=== PATIENT | female | born 1960 | race Caucasian/White ===

== ENCOUNTER 2017-04-16 08:12 | Outpatient (CLI) | payer BC ==
--- NOTE | 2017-04-16 09:56 | MRI ---
CERVICAL SPINE MRI WITHOUT CONTRAST: Date: 04-16-17 Comparison: None. History: Cervical radiculopathy at C6. Technique: Multiplanar, multisequence MR imaging of the cervical spine is provided without contrast. FINDINGS: The sagittal STIR imaging demonstrates no focal area of osseous marrow edema. Cervical vertebral body height and alignment is within normal limits. No prevertebral soft tissue abn ormality is noted. C2-3: There is mild right sided facet hypertrophy. Intervertebral disc height and signal intensity is within normal limits no significant central canal or neural foraminal stenosis. C3-4: Right sided facet hypertrophy. Minimal right neural foraminal stenosis. No central canal or lef t neural foraminal stenosis. Intervertebral disc height and signal intensity is within normal limits. C4-5: There is mild right sided facet hypertrophy with associated mild right neural foraminal stenosi s. No significant central canal or left neural foraminal stenosis. C5-6: There is mild disc space narrowing and disc bulge with no central canal stenosis. There is mild right neural foraminal stenosis on the basis of facet and uncal vertebral osteophyte formation. No l eft neural foraminal stenosis. C6-7: Intervertebral disc height and signal intensity is within normal limits with no significant carl tral canal or neural foraminal stenosis. C7-T1: Mild left facet hypertrophy. Minimal left neural foraminal stenosis. No central canal or right neural foraminal stenosis. No focal area of signal abnormality identified within the cervical cord. IMPRESSION: Relatively mild cervical spine degenerative change as detailed above. POS: [facility]
== END 2017-04-16 08:13 | disposition home or self-care (01) ==
LOC: SCSMRI 08:12
PROVIDERS: ATTEND Anesthesiology Pain Medicine
DX: M47.22 Other spondylosis with radiculopathy, cervical region (principal)
CPT/HCPCS: 72141

== ENCOUNTER 2019-01-08 13:31 | Outpatient (CLI) | payer BC ==
--- NOTE | 2019-01-08 15:00 | BD ---
Exam: DEXA Bone Density 01/08/19 HISTORY: Postmenopausal. Lumbar Spine: BMD (g/cm2) T-SCORE L1 0.852 -1.3 L2 0.868 -1.5 L3 0.887 -1.8 L4 0.940 -1.1 L1-L4 0.890 -1.4 Left Femoral Neck: 0.713 -1.2 Total Femur: 0.906 -0.3 Impression: 1. Osteopenia in the lumbar spine left femoral neck. 2. Ten year fracture risk for major osteoporotic fracture is 13% and hip fracture 1.1%. These fr acture probabilities are calculated for an untreated patient. POS: OFF
== END 2019-01-08 13:32 | disposition home or self-care (01) ==
LOC: BICMAMMO 13:31
PROVIDERS: ATTEND Internal Medicine Rheumatology
DX: M81.0 Age-related osteoporosis without current pathological fracture (principal); M85.89 Other specified disorders of bone density and structure, multiple sites
CPT/HCPCS: 77080

== ENCOUNTER 2020-02-18 15:59 | Outpatient (CLI) | payer OTHER ==
--- NOTE | 2020-02-18 17:06 | MRI ---
MR of the right shoulder without contrast INDICATION: History of right shoulder pain COMPARISON: None FINDINGS: There is mild/moderate tendinosis of the supraspinatus and infraspinatus.. There is a small focal int ratendinous delaminating tear involving the posterior supraspinatus at the footprint measuring approximately 0.6 x 0.6 cm. No full-thickness tear is evident. There is [id number] fluid in the subcarinal subdeltoid space. The biceps tendon is located. Glenoid labrum appears intact. Glenohumeral articular surface is normal-appearing. There is mild AC joint osteoarthrosis. There is a type II acromion. No os acromiale is evident. No muscular atrophy is evident. The anterior inferior glenohumeral labral ligamentous complex appears intact. No bone marrow signal abnormality is evident. No enlarged lymph nodes are present. IMPRESSION: 1. Ppma-oy-[id number] tendinosis of the supraspinatus and infraspinatus with a small intrasubstance del aminating tear involving the posterior supraspinatus at the footprint. 2. Yeda-ig-[id number] fluid in the subacromial, subdeltoid bursa may reflect underlying bursitis. 3. Mild AC joint osteoarthrosis. Transcribed Date/Time: 02/18/2020 5:20 PM
== END 2020-02-18 16:00 | disposition home or self-care (01) ==
LOC: SCSMRI 15:59
PROVIDERS: ATTEND Orthopaedic Surgery
DX: M75.21 Bicipital tendinitis, right shoulder (principal); M19.011 Primary osteoarthritis, right shoulder; M25.411 Effusion, right shoulder; M67.813 Other specified disorders of tendon, right shoulder; M75.101 Unspecified rotator cuff tear or rupture of right shoulder, not specified as traumatic

== ENCOUNTER 2020-11-29 13:51 | Outpatient (CLI) | payer OTHER | END 2020-11-29 13:52 | disposition home or self-care (01) | LOC: SCSMRI 13:51 | PROVIDERS: ATTEND Orthopaedic Surgery | DX: S83.242A Other tear of medial meniscus, current injury, left knee, initial encounter (principal); M17.12 Unilateral primary osteoarthritis, left knee ==

== ENCOUNTER 2021-03-01 15:57 | Outpatient (CLI) | payer OTHER ==
[2021-03-01 16:50] LABS: #Basophils 0.1 10x3/uL (0.0-0.2); #Eosinphils 0.3 10x3/uL (0.0-0.5); #Monocytes 0.6 10x3/uL (0.0-1.1); #Neutrophils 3.2 10x3/uL (1.5-8.4); %Basophils 0.9 % (0.0-2.0); %Eosinophils 4.3 % (0.0-6.0); %Lymphocytes 30.6 % (18.0-47.0); %Monocytes 9.6 % (0.0-10.0); %Neutrophils 54.4 % (40.0-75.0); Hemoglobin 13.4 g/dL (12.0-15.5); Mean Corpuscular HGB CONC 33.3 g/dL (32.0-36.0); Mean Corpuscular Hemoglobin 32.1 pg (27.0-33.0); Mean Corpuscular Volume 96.4 fl (81.6-98.3); Mean Platelet Volume 8.6 fl (7.4-10.4); Platelet Count 318 10x3/uL (150-450); RBC Distribution Width 11.9 % (11.5-14.5); Red Blood Cell (RBC) Count 4.18 10x6/uL (3.90-5.03); White Blood Cell (WBC) Count 5.9 10x3/uL (3.5-10.5)
[2021-03-01 17:08] LABS: Anion Gap 12 mmol/L (10-20); BUN (Urea Nitrogen) 18 mg/dL (9.8-20.1); Calc. Creatinine Clearance 0 mL/min (70-130); Calcium 10.2 mg/dL (7.8-10.44); Carbon Dioxide 30 mmol/L (22-29); Chloride 99 mmol/L (98-107); Glucose 85 mg/dL (70-105); Potassium 3.3 mmol/L (3.5-5.1); Sodium 138 mmol/L (136-145)
[2021-03-02 08:32] LABS: SARS-CoV-2 PCR by NAA Not Detected (NotDetected)
== END 2021-03-01 15:58 | disposition home or self-care (01) ==
LOC: LABBT 15:57
PROVIDERS: ATTEND Orthopaedic Surgery
DX: Z01.818 Encounter for other preprocedural examination (principal); S83.242A Other tear of medial meniscus, current injury, left knee, initial encounter; Z20.822 Contact with and (suspected) exposure to COVID-19
CPT/HCPCS: 80048; 85025; 93005; 93010; U0003; U0005

== ENCOUNTER 2021-03-06 08:36 | Day surgery (SDC) | payer OTHER ==
[2021-03-06] MEDS ORDERED: Clindamycin/D5W 600 mg/50 ml Premix Bag ONE (09:05)
[2021-03-06] MEDS ORDERED: Scopolamine 1.5 mg/72 hour Patch ONE (10:38)
[2021-03-06] MEDS ORDERED: Fentanyl 100 MCG/2 ML VIAL ONE (11:46)
[2021-03-06] MEDS ORDERED: Bupivacaine HCl 0.5%/Epinephrine 1:200,000/PF 30 ml Vial ONE (11:51)
[2021-03-06] MEDS ORDERED: PROPOFOL 200 MG/20 ML VIAL ONE (11:51)
[2021-03-06] MEDS ORDERED: Dexamethasone 20 MG/5 ML VIAL ONE (11:51)
[2021-03-06] MEDS ORDERED: Ondansetron PF 4 MG/2 ML Vial ONE ×2 (11:51→13:27)
[2021-03-06] MEDS ORDERED: Lidocaine 2% w/Epinephrine 1:200K 20 ML VIAL ONE (11:51)
[2021-03-06] MEDS ORDERED: Lidocaine 1% PF 5 ML VIAL ONE (11:51)
[2021-03-06] MEDS ORDERED: Meperidine HCl/PF 25 MG/ML VIAL ONE (13:08)
== END 2021-03-06 15:00 | disposition home or self-care (01) ==
LOC: SDC 08:36
PROVIDERS: ATTEND Orthopaedic Surgery
PROC: 0SBD4ZZ Excision of Left Knee Joint, Percutaneous Endoscopic Approach (ICD-10-PCS; principal; 2021-03-06)
DX: S83.232A Complex tear of medial meniscus, current injury, left knee, initial encounter (principal); G43.109 Migraine with aura, not intractable, without status migrainosus; G40.909 Epilepsy, unspecified, not intractable, without status epilepticus; J45.909 Unspecified asthma, uncomplicated; G25.81 Restless legs syndrome; M19.042 Primary osteoarthritis, left hand; M19.041 Primary osteoarthritis, right hand; Z90.710 Acquired absence of both cervix and uterus; Z98.890 Other specified postprocedural states; Z90.49 Acquired absence of other specified parts of digestive tract; Z88.8 Allergy status to other drugs, medicaments and biological substances; Z79.51 Long term (current) use of inhaled steroids; Z79.899 Other long term (current) drug therapy; X50.1XXA Overexertion from prolonged static or awkward postures, initial encounter
CPT/HCPCS: J2175; J2405; J3010; J3490

== ENCOUNTER 2022-06-05 14:01 | Outpatient (CLI) | payer OTHER | END 2022-06-05 14:02 | disposition home or self-care (01) | LOC: BICMAMMO 14:01 | PROVIDERS: ATTEND Internal Medicine Rheumatology | DX: M81.0 Age-related osteoporosis without current pathological fracture (principal); M85.852 Other specified disorders of bone density and structure, left thigh; M85.851 Other specified disorders of bone density and structure, right thigh | CPT/HCPCS: 77080 ==

== ENCOUNTER 2022-11-08 08:40 | Outpatient (CLI) | payer OTHER | END 2022-11-08 08:41 | disposition home or self-care (01) | LOC: RAD 08:40 | PROVIDERS: ATTEND Internal Medicine Critical Care Medicine | DX: R06.00 Dyspnea, unspecified (principal) | CPT/HCPCS: 71046 ==